=== PATIENT | female | born 1925 | race African-American/Black ===

== ENCOUNTER 2016-09-13 20:07 | Observation (INO) | payer MEDICARE ==
--- NOTE | ~2016-09-13 | HP ---
History And Physical [place] [address] [facility] [place]. [address] NAME: GREGORY GE : [birth year] STATUS : ADM Julia PAT#: [id number] AGE: 89 ADM/REG DATE : 09/13/16 MR#: [id number] REPORT SERV DATE: 09/14/16 DICTATED BY: LEONIE HILLIARD DATE: 09/14/16 REPORT STATUS : Draft TRANSCRIBED BY: CECIL DATE: 09/14/16 DATE OF ADMISSION: 09/13/2016 PRIMARY CARE PROVIDER: Ravenairaida Mckeon [facility]. PROJECT OFFICER: Tao Neil M.D. CHIEF COMPLAINT: Atypical chest pain. HISTORY OF PRESENT ILLNESS: This is a very pleasant 89-year-old black female with known history of CAD and peripheral vascular disease to date untreated with any intervention or stents. The patient describes "a little pain in my chest while talking to the phone company." She reports three transient episodes that lasted a very brief amount of time. There was no exertional component, although she states she was upset with the phone company. The last episode was a little degree of chest heaviness, rated as 6/10 but resolved "in a flitter." She denies any shortness of breath, nausea, diaphoresis, dizziness, or belching. She took no additional medications at home. She had her son bring her to the emergency room. She self reports a history of slight heart attack in the past and a stroke with no residual deficit. Denies history of PE or DVT. The patient denies any recent fever or chills, no palpitations, no syncopal episodes. Denies PND or orthopnea. Sleeps on two pillows. PAST MEDICAL HISTORY: 1. CAD. a. Reports IN x1. b. Cath in 2001 reveals a 99% mid RCA lesion and an extremely small vessel with collaterals. 2. PVD with less than 50% bilateral disease. 3. Hypertension. 4. Dyslipidemia. 5. AODM. 6. Hypothyroid, on replacement. 7. Depression. 8. History of stroke with no reported deficit. 9. Ambulates with a cane. 10.Former tobacco use. PAST SURGICAL HISTORY: 1. Bladder tack. 2. Hysterectomy. 3. Cataracts. SOCIAL HISTORY: She is with two children. 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 Does not have an exercise routine, but lives independently in her house with the support of her family. Quit smoking several years ago and reports that she smoked for History And Physical [address] [address] NAME: GREGORY GE : [birth year] STATUS : ADM Julia PAT#: [id number] AGE: 89 ADM/REG DATE : 09/13/16 MR#: [id number] REPORT SERV DATE: 09/14/16 DICTATED BY: LEONIE HILLIARD DATE: 09/14/16 REPORT STATUS : Draft TRANSCRIBED BY: MODL DATE: 09/14/16 only [age] years. Denies alcohol or illicits. FAMILY HISTORY: No embolic events reported in first-degree relatives. She has a son who of cancer. She is one of 16 children, 13 full siblings and three half siblings. REVIEW OF SYSTEMS: 14-point review of systems performed, significant for HPI including home blood sugar of 115. Otherwise, complete review of systems obtained and negative. ALLERGIES: ALLERGY TO LISINOPRIL, WELLBUTRIN, AND IBUPROFEN. HOME MEDICINES: Norvasc 10 mg daily, aspirin 81 mg daily, clopidogrel 75 mg daily, iron 325 twice daily, Lasix 20 mg daily, Synthroid 100 mcg daily, Claritin 10 mg daily, metformin 500 mg daily, potassium 10 mEq daily, Crestor 20 mg nightly, and Trintellix 10 mg daily. PHYSICAL EXAMINATION: VITAL SIGNS: Blood pressure 133/68, pulse 63, respirations 20, temperature 98.2, O2 saturation 98% on room air. Height 5 feet 2 inches. Weight 148 pounds. BMI 27.1. GENERAL: Cooperative, in no apparent distress. HEENT: Pupils 2 mm, sclera nonicteric. Nares patent. Moist mucous membranes. No xanthelasma. NECK: Trachea midline, no thyromegaly. No JVD. No bruits. LYMPH: No cervical lymphadenopathy. No supraclavicular lymphadenopathy. RESPIRATORY: Unlabored respirations. Breath sounds clear bilaterally to posterior auscultation. No wheezes or rhonchi. CARDIOVASCULAR: 2/6 murmur best audible at the base with radiation to the neck. EXTREMITIES: Without edema. Pulses 2+ bilaterally. ABDOMEN: Soft, nontender, nondistended, normal bowel sounds auscultated throughout. No organomegaly. SKIN: Warm, dry extremities. No pallor, or cyanosis. PSYCHIATRIC: Appropriate affect. Alert, oriented x3. LABORATORY DATA: Troponin 0.10, 0.13, 0.11 (historically flat troponins, unchanged). Potassium 4.3, BUN 10, creatinine 0.80, glucose 92, magnesium 2.3, BNP 30.2. WBC 6.4, hemoglobin 10.6, hematocrit 33.2, and platelet count 291,000. EKG: Sinus rhythm with inferior Q-waves. Echo, 03/2013: EF 50%. Aortic valve sclerosis without stenosis. MPI, 09/2013: Mild inferior and apical ischemia, EF 57%, low risk. ASSESSMENT AND PLAN: 1. Atypical chest pain. The patient has been observed in the CPOU with flat troponins unchanged from previous. The chest pain has resolved and was transient without any exertion described. Consider discharge home with close Cardiology followup versus further cardiac testing. We will discuss with rounding physician. Further recommendations forthcoming. History And Physical [address] [address] NAME: GREGORY GE : [birth year] STATUS : ADM Julia PAT#: [id number] AGE: 89 ADM/REG DATE : 09/13/16 MR#: [id number] REPORT SERV DATE: 09/14/16 DICTATED BY: LEONIE HILLIARD DATE: 09/14/16 REPORT STATUS : Draft TRANSCRIBED BY: CECIL DATE: 09/14/16 2. Coronary artery disease. Continue home medications. 3. Hypertension. Monitor blood pressure and continue home medications. 4. Dyslipidemia. Continue statin. 5. Adult-onset diabetes mellitus. Hold metformin, level 1 sliding scale correction. MONALISA/CECIL Leonie Hilliard MSN, APPLICATION ADMINISTRATOR-BC / [id number] CC: ABEL Garcia, APPLICATION ADMINISTRATOR-BC Tao Neil Jr., M.D.
[2016-09-13 17:21] LABS: BASOPHILS 0.6 %; BASOPHILS ABSOLUTE 0.04 10/3/uL (0.0-0.16); EOSINOPHILS ABSOLUTE 0.13 10/3/uL (0.0-0.53); ER CBC TAT 0 Hrs 05 Mins; IMMATURE GRANULOCYTES 0.3 %; IMMATURE GRANULOCYTES ABSOLUTE 0.02 10/3/uL (0.0-0.11); LYMPHOCYTES 24.6 %; LYMPHOCYTES ABSOLUTE 1.57 10/3/uL (0.67-4.30); MEAN PLATELET VOLUME 9.1 fL (9.2-13.0); MONOCYTES ABSOLUTE 0.51 10/3/uL (0.21-1.20); NEUTROPHILS 64.5 %; NEUTROPHILS ABSOLUTE 4.12 10/3/uL (2.02-8.40); PLATELET COUNT 291 10/3/uL (150-400); RBC DISTRIBUTION WIDTH 17.3 % (12.0-16.0); RED CELL COUNT 4.48 10/6/uL (4.0-5.6); WHITE BLOOD CELLS 6.4 10/3/uL (4.5-10.5)
[2016-09-13 17:24] LABS: HEMATOCRIT 33.2 % (36.0-48.0); HEMOGLOBIN 10.6 g/dL (12.0-16.0); MANUAL DIFF NO %; MEAN CORPUS HGB CONC 31.9 g/dL (32.0-36.0); MEAN CORPUSCULAR HEMOGLOB 23.7 pg (26.0-34.0); MEAN CORPUSCULAR VOLUME 74.1 fL (80-100)
[2016-09-13 17:29] LABS: INTERNATIONAL NORMAL RATI 1.1 UNITS (-); PARTIAL THROMBO TIME 29.8 SEC (22.5-37.2); PROTIME (NOT ORD) 13.9 SEC (12.0-14.5)
[2016-09-13 17:36] LABS: BUN (BLOOD UREA NITROGEN) 12 MG/DL (6-23); CALCIUM, SERUM 8.4 MG/DL (8.5-10.4); CHLORIDE, SERUM 102 MMOL/L (96-112); CO2 (CARBON DIOXIDE) 26 MMOL/L (24-34); CREATININE 0.85 MG/DL (0.55-1.02); GFR AFRICAN AMERICAN 70 ML/MIN (>=60); GFR NON AFRICAN AMERICAN 61 ML/MIN (>=60); GLUCOSE, SERUM 93 MG/DL (60-99); POTASSIUM, SERUM 3.9 MMOL/L (3.5-5.3); SODIUM, SERUM 138 MMOL/L (135-148)
[2016-09-13 17:37] LABS: CHEST PAIN PROFILE TAT 0 Hrs 21 Mins
[~2016-09-13 20:07] MED LIST: ACET500CAP PO; CRESTOR20 MG PO; DIOV80 PO; DYAZIDE1 CAP PO; FERROUS SULF325 M1 PO; GLUCPH PO; HALF81; LEVOTHROID75 MCG PO; LEVOTHYROXIN75 MCG PO; LYRICA50 PO; MAX25 PO; MOBIC15 MG PO; NORV10 PO; NORV5 PO; NUIRONCAP PO; PLAVIX PO; PLETAL50 PO; PROTONIX PO; SPIRO50 PO; SYN075 PO
[2016-09-13] MEDS ORDERED: TRINTELLIX10 MG PO (20:21)
[2016-09-13] MEDS ORDERED: PLAVIX PO (20:22)
[2016-09-13] MEDS ORDERED: L20 PO (20:53)
[2016-09-13] MEDS ORDERED: FERROUS SULF325 M1 PO (20:54)
[2016-09-13] MEDS ORDERED: CLARIT10 PO (20:54)
[2016-09-13] MEDS ORDERED: CRESTOR20 MG PO (20:55)
[2016-09-13] MEDS ORDERED: KDUR10 PO (20:55)
[2016-09-13] MEDS ORDERED: NORV10 PO (20:55)
[2016-09-13] MEDS ORDERED: SYN1 PO (20:55)
[2016-09-13] MEDS ORDERED: GLUCPH PO (20:56)
[2016-09-13] MEDS ORDERED: ASAB PO (20:58)
[2016-09-14 00:43] LABS: BUN (BLOOD UREA NITROGEN) 10 MG/DL (6-23); CALCIUM, SERUM 8.3 MG/DL (8.5-10.4); CHLORIDE, SERUM 105 MMOL/L (96-112); CO2 (CARBON DIOXIDE) 29 MMOL/L (24-34); GFR AFRICAN AMERICAN 76 ML/MIN (>=60); GFR NON AFRICAN AMERICAN 65 ML/MIN (>=60); GLUCOSE, SERUM 92 MG/DL (60-99); POTASSIUM, SERUM 4.3 MMOL/L (3.5-5.3); SODIUM, SERUM 142 MMOL/L (135-148)
[2016-09-14 01:46] LABS: TROPONIN I 0.11 NG/ML (<0.05)
== END 2016-09-14 12:16 | disposition home or self-care (01) ==
LOC: ER 20:07 → CDU1 20:19
PROVIDERS: Clinical Nurse Specialist; Emergency Medicine
DX: R07.89 Other chest pain (principal); I25.10 Atherosclerotic heart disease of native coronary artery without angina pectoris; I10 Essential (primary) hypertension; E78.5 Hyperlipidemia, unspecified; E11.9 Type 2 diabetes mellitus without complications; E03.9 Hypothyroidism, unspecified; I73.9 Peripheral vascular disease, unspecified; F32.9 Major depressive disorder, single episode, unspecified; Z86.73 Personal history of transient ischemic attack (TIA), and cerebral infarction without residual deficits; Z87.891 Personal history of nicotine dependence; Z95.5 Presence of coronary angioplasty implant and graft; Z98.41 Cataract extraction status, right eye; Z96.1 Presence of intraocular lens; Z90.710 Acquired absence of both cervix and uterus; Z98.890 Other specified postprocedural states; Z88.1 Allergy status to other antibiotic agents; Z88.5 Allergy status to narcotic agent; Z88.8 Allergy status to other drugs, medicaments and biological substances
CPT/HCPCS: 71020; 80048; 82962; 83735; 83880; 84484; 85025; 85610; 85730; 93005; 99285; A9270-GY; G0378